=== PATIENT | female | born 1955 | race Caucasian/White ===

== ENCOUNTER 2020-08-22 17:18 | Emergency (ER) | payer BC, SELFPAY ==
[2020-08-22 17:19] VITALS: BP 119/84; PULSE 100; RESP 18; TEMP 38.2; O2SAT 93; BMI 23.2
--- NOTE | 2020-08-22 18:34 | EKG12_ITS ---
Test Reason : DYSRYTHMIA Blood Pressure : / mmHG Vent. Rate : 086 BPM Atrial Rate : 086 BPM P-R Int : 176 ms QRS Dur : 090 ms QT Int : 374 ms P-R-T Axes : 077 076 086 degrees QTc Int : 447 ms Normal sinus rhythm Normal ECG Confirmed by IRAIDA BUSH, DALY ([id number]), book editor SANTIAGO OCHOA ([id number]) on 08/25/2020 8:33:56 AM Referred By: ZOHREH Confirmed By:DALY KHOURY MD
--- NOTE | 2020-08-22 18:35 | CT_ITS ---
STUDY: CTA CHEST REASON FOR EXAM: Female, 65 years old. Dyspnea on exertion. History of lung cancer. RADIATION DOSAGE (If Supplied By Facility): CTDIvol = ( 4.74 ) mGy, DLP = ( 169.69 ) mGycm TECHNIQUE: The examination was performed with the intravenous administration of IV 75mL Isovue-370. Post-processing of the angiographic images was performed, with multiplanar reformation and 3D reconstruction. Individualized dose optimization techniques were used for this CT. COMPARISON: Chest, 08/22/2020. FINDINGS: Normal enhancement of the main pulmonary artery and right and left pulmonary arteries. Normal enhancement of the bilateral peripheral pulmonary arteries. There is no demonstrated pulmonary embolism. Normal thoracic aorta and visualized great vessels. There is no demonstrated aortic dissection. Normal heart and pericardium. There is soft tissue density in the mediastinum consistent with mild lymphadenopathy. Abnormal right hilum. This soft tissue density arising from the superior left hilum extends outward into the left upper lobe along the pulmonary vasculature extending outward to the apical pleural surface. This also extends posteriorly to involve the superior oblique fissure. Normal visualized trachea and bronchi. The lungs are well expanded. There is linear scarring and infiltrate left upper lobe. The lungs appear otherwise clear. Normal pleura. Normal chest wall structures. Normal osseous structures. There is a cyst in the upper pole of the right kidney. Otherwise normal visualized upper abdomen. CT/CTA Chest W/WO Contrast IMPRESSION: 1. No evidence of pulmonary embolus. 2. No aortic dissection or aneurysm. 3. Soft tissue density extending from the left hilum upward into the right upper lobe. It is uncertain whether this represents malignancy or scarring. This correlates with the density seen in the left upper lobe on plain film. Lungs appear otherwise clear. 4. Question mild mediastinal lymphadenopathy. Electronically Signed: Osmar Davison DO at 20:19 EST Tel [phone], Service support ,
--- NOTE | 2020-08-22 18:40 | ED.RN ---
NO OLD EKGS IN MUSE
--- NOTE | 2020-08-22 18:45 | RAD_ITS ---
STUDY: X-RAY CHEST REASON FOR EXAM: Female, 65 years old. COVID 19 positive. Symptoms began Friday. Increasing shortness of breath. History of lung cancer. TECHNIQUE: Single AP portable view of the chest. COMPARISON: None. FINDINGS: Right jugular Port-A-Cath with its tip at the distal superior vena cava. The lungs are hyperexpanded. There is linear densities in the left lung apex with cephalization left hilum. Left and minimal interstitial changes at the right lung base. There is no demonstrated pleural abnormality. Normal size heart. The mediastinum and right hilum. Normal visualized pulmonary arteries. Normal visualized aortic arch and descending thoracic aorta. Normal visualized thoracic spine. Normal visualized ribs, clavicles, and shoulders. There is no demonstrated abnormality of the visualized soft tissue structures of the upper abdomen. RAD/Chest 1 View (Portable) IMPRESSION: 1. Port-A-Cath as described. 2. Density in the left upper lobe with cephalization of the hilum. This may be postsurgical or secondary to malignancy. 3. Question vague infiltrate at the right lung base. Possibility of early pneumonia is considered. Electronically Signed: Osmar Davison DO at 19:20 EST Tel [phone], Service support ,
--- NOTE | 2020-08-22 18:58 | ED.VISSUMM ---
- ER Visit Summary Date of Service: 08/22/20 Chief Complaint: Shortness of breath and cough History of Present Illness: The patient is a 65 F who presents with shortness of breath and cough that has been getting worse over the past week. Patient states it is gradually getting worse. Patient states she feels like she has spasms in her chest when she takes a deep breath. Patient states her breathing is worse whenever she lays down. Patient admits to a fever of 102.1. Patient states she tested positive for COVID-19 today. Patient denies any chest pain or palpitations. Patient admits to a cough but denies any sputum production. Physical Examination: Vital signs are stable. Patient has a temperature of 100.7. Patient is in no acute distress. Oral mucosa is pink and moist. Neck is supple. Trachea is midline. There is no JVD noted. Heart was regular rate and rhythm. Lungs are clear and equal bilaterally. Abdomen is soft. Bowel sounds are normal. There is no tenderness. There is no rebound or guarding noted. Skin is warm dry. Cranial nerves II through XII are intact. There are no focal motor or sensory deficits noted. Extremities are intact. There is no calf tenderness or edema. Test Results: EKG was obtained. On my interpretation, there is a normal sinus rhythm with a rate of 86. There are no acute ST or T wave changes. Portable chest x-ray is obtained. There is 1 view. On my interpretation, there is left upper lobe density. Patient does have a history of lung cancer. There is no acute infiltrate noted. There is no effusion. There is no cardiomegaly. Bony thorax is normal. Radiologist also interpreted the x-ray and agrees. CTA of the chest was obtained. There is no evidence of pulmonary embolism or aortic dissection. The left upper lobe density is also noted. There may be some lymphadenopathy as well. This was interpreted by the radiologist and reviewed by myself. CBC shows a white blood cell count of 2.0. Platelets were 144. Comprehensive metabolic profile was normal. PT with INR and PTT were normal. Emergency Department Course and Treatment: Patient was given 4 puffs of albuterol inhaler here. Patient was instructed to continue the albuterol inhaler at home as needed. Patient was instructed to continue Tylenol or ibuprofen as needed for any fevers or aches. Patient was instructed to follow-up with her primary care physician in 5 to 7 days. Patient understood and was agreeable with the plan. All questions were answered. Disposition: Discharge home Impression: 1. COVID-19 This note was generated with [employer] dictation software. It may contain incorrect words, spelling, and punctuation that were not noted in review of the chart prior to signing ED Disposition - Plan for ED Patient: Disposition: Home or Assisted Living Diagnosis: COVID-19 Instructions: Coronavirus Disease 2019 (COVID-19): Overview Referrals: [facility],Out of [NON-STAFF] - 5-7 Days
[2020-08-22 19:09] VITALS: RESP 18; O2SAT 100
[2020-08-22 19:17] VITALS: O2SAT 100
[2020-08-22 19:17] LABS: Absolute Lymphocyte Count 0.34 X10^3/uL (0.83-4.51); Absolute Neutrophil Count 1.1 X10^3/uL (2.0-7.7); Eosinophil# 0.22 X10^3/uL; Eosinophils% 11.3 % (0-5); Hematocrit 42.8 % (37-47); Lymphocyte # 0.34 X10^3/ul (4.0); Lymphocyte % 17.4 % (19-41); Mean Corp Hgb Conc 32.7 g/dL (32-36); Mean Corpuscular Hgb 30.6 pg (27.0-32.0); Mean Corpuscular Volume 93.7 fL (81-99); Mean Platelet Vol. 8.2 fl (6.2-12.0); Monocyte# 0.27 X10^3/uL; Monocyte% 13.8 % (0-10); NRBC Flagged by Analyzer 0 % (0-5); Neutrophil # 1.11 X10^3/uL (2.7-7.7); POSITIVE DIFFERENTIAL YES; Platelet Count 144 K/mm3 (150-450); RBC Distribution Width CV 12.6 % (11.6-14.6); RBC Distribution Width SD 43.6 fl (35.1-43.9); Red Blood Count 4.57 M/mm3 (4.2-5.4)
[2020-08-22 19:32] LABS: Differential Indicated SCAN CRITERIA MET
[2020-08-22 19:34] LABS: ALB/GLOB Ratio 0.8 RATIO (0.9-2.4); AST(SGOT) 18 U/L (15-37); Alanine Aminotransfer ALT/SGPT 27 U/L (13-56); Albumin, Serum 3.1 g/dL (3.2-5.0); Alkaline Phosphatase 85 U/L (45-117); Anion Gap 4 (5-15); BUN 14 mg/dL (7-18); BUN/Creat Ratio 14.7 RATIO (10-20); Calcium,Total 8.3 mg/dL (8.5-10.1); Chloride 105 mmol/L (98-107); Creatinine, Serum 0.95 mg/dL (0.55-1.02); EST Glomerular Filtration Rate 63 mL/min (>60); Est Glom Filt Rate - Afr Amer 76 mL/min (>60); Estimated Creatinine Clearance 53.83 ml/min; Glucose 95 mg/dL (74-106); Potassium 3.8 mmol/L (3.5-5.1); Protein, Total 7.1 g/dL (6.4-8.2); Sodium Level 140 mmol/L (136-145)
[2020-08-22 19:37] LABS: International Normalized Ratio 0.9; Partial Thromboplast Time 29.5 Seconds (24.1-36.2); Prothrombin Time (Protime)PT. 12.1 SECONDS (11.7-14.9)
[2020-08-22 21:09] VITALS: BP 122/83; PULSE 83; RESP 18; O2SAT 100
[2020-08-23 11:41] LABS: Pathologist Review Reviewed
== END 2020-08-22 22:20 | disposition home or self-care (01) ==
PROVIDERS: Emergency Provider Emergency Medicine
DX: U07.1 COVID-19 (principal); Z85.118 Personal history of other malignant neoplasm of bronchus and lung
CPT/HCPCS: 71045; 71275; 80053; 85025; 85610; 85730; 93005; 94760; 99284; Q9967; A4216